=== PATIENT | female | born 1990 | race Asian ===

== ENCOUNTER 2017-11-05 01:02 | Emergency (ER) | payer SELFPAY ==
[~2017-11-05] VITALS: Ht 165.1 cm; Wt 58.1 kg
[~2017-11-05 01:02] MED LIST: CIPRO500 MG PO; IBUPROFEN600 MG ORAL
[2017-11-05 01:20] VITALS: BP 103/68
[2017-11-05] MEDS ORDERED: NKM (01:21)
[2017-11-05] MEDS ORDERED: Cephalexin 500mg cap ORAL ONE (01:30)
[2017-11-05] MEDS ORDERED: Phenazopyridine 200mg tab ORAL ONE (01:30)
[2017-11-05] MEDS ORDERED: CEPHALEXIN500 MG ORAL (01:32)
[2017-11-05] MEDS ORDERED: PHENAZOPYRIDIN200 MG ORAL (01:32)
--- NOTE | 2017-11-05 01:33 | Emergency Room Report ---
History of Present Illness General Chief Complaint: Female Urogenital Problems Source: Patient Present Illness HPI Is a 27-year-old German female with no past medical history. She presents with chief complaint of dysuria, frequency, urgency for the last 3 days. Worse tonight. She noticed some hematuria. No radiation. No fever. No upper back pain. Pain is 7 out of 10. Worse with urination. Allergies: Coded Allergies: No Known Allergies (Unverified , 11/05/17) Patient History Past Medical History: none, see triage record, old chart reviewed Past Surgical History: none Pertinent Family History: none Social History: Denies: smoking Last Menstrual Period: unk Now: No Immunizations: other Reviewed Nursing Documentation: PMH: Agreed; PSxH: Agreed Nursing Documentation-PMH Past Medical History: No Stated History Review of Systems Eye: Denies: eye pain, blurred vision ENT: Denies: ear pain, nose congestion, throat swelling Respiratory: Denies: cough, shortness of breath Cardiovascular: Denies: chest pain, palpitations Gastrointestinal: Denies: abdominal pain, diarrhea, nausea, vomiting Genitourinary: Reports: dysuria, frequency, hematuria, pain, urgency Musculoskeletal: Denies: back pain, joint pain Skin: Denies: rash Neurological: Denies: headache, numbness Endocrine: Denies: increased thirst, increased urine Hematologic/Lymphatic: Denies: easy bruising All Other Systems: negative except mentioned in HPI Physical Exam Vital Signs Date Time Temp Pulse Resp B/P (MAP) Pulse Ox O2 Delivery O2 Flow Rate FiO2 11/05/17 01:17 98.2 83 16 103/68 95 98.2 vitals normal Sp02 EP Interpretation: reviewed, normal General Appearance: well appearing, no apparent distress, alert Head: normocephalic, atraumatic Eyes: bilateral eye PERRL, bilateral eye EOMI ENT: hearing grossly normal, normal pharynx Neck: full range of motion, supple, no meningismus Respiratory: chest non-tender, lungs clear, normal breath sounds Cardiovascular #1: regular rate, rhythm, no murmur Gastrointestinal: normal bowel sounds, non tender, no mass, no organomegaly, no bruit, non-distended Musculoskeletal: back normal, gait/station normal, normal range of motion Psychiatric: mood/affect normal Skin: warm/dry Medical Decision Making Diagnostic Impression: Primary Impression: UTI (urinary tract infection) Qualified Codes: N30.01 - Acute cystitis with hematuria ER Course Patient presents with symptoms consistent with UTI. No evidence of pyelonephritis or sepsis. Dose of antibiotics and Pyridium given here. We'll discharge home. Last Vital Signs Date Time Temp Pulse Resp B/P (MAP) Pulse Ox O2 Delivery O2 Flow Rate FiO2 11/05/17 01:17 98.2 83 16 103/68 95 98.2 Status: improved Disposition: HOME, SELF-CARE Condition: Stable Scripts Phenazopyridine Hcl* (PYRIDIUM*) 200 Mg Tablet 200 MG ORAL THREE TIMES A DAY, #6 TAB 0 Refills Prov: MI REGALADO M.D. 11/05/17 Cephalexin* (KEFLEX*) 500 Mg Capsule 500 MG ORAL TID, #21 CAP Prov: MI REGALADO M.D. 11/05/17 Referrals: NOT CHOSEN IPA/,REFERRING (PCP) Patient Instructions: Urinary Tract Infection Additional Instructions: Increase fluid. Pyridium will turn your urine an orange color. Do not be concern. Follow-up with your DrOctaviano in 2-3 days of not better. Return if worse. MI REGALADO M.D. Nov 05, 2017 01:33
[2017-11-05 01:50] VITALS: BP_SYST 103; BP_SYST 108; BP_DIAS 68; BP_DIAS 72
== END 2017-11-05 01:51 | disposition home or self-care (01) ==
LOC: EMR 01:23 → MERGE 01:23 → EMR 01:51
DX: N39.0 Urinary tract infection, site not specified (principal)
CPT/HCPCS: 87086; 87181; 99283

== ENCOUNTER 2017-11-26 09:39 | Emergency (ER) | payer MEDICAID ==
[~2017-11-26] VITALS: Ht 167.6 cm; Wt 54.4 kg
[~2017-11-26 09:39] MED LIST changes: +CEPHALEXIN500 MG ORAL; +NKM; +PHENAZOPYRIDIN200 MG ORAL
[2017-11-26 09:47] VITALS: BP 102/60
--- NOTE | 2017-11-26 09:52 | Emergency Room Report ---
History of Present Illness General Chief Complaint: Behavioral Complaint Source: Patient, EMS (Anson Lal MD) Present Illness HPI Patient is a 27-year-old female brought in by EMS after increased reported suicidal thoughts. Patient was brought in with a [employer]. The patient was placed on a 5150 reported danger to self. Per [employer] patient was the reported telling multiple people that she wanted to harm herself. Per [employer] the patient stated that she had reported suicidal thoughts. patient reports having prior hospitalization. She denies any medication use other than Xanax. (Anson Lal MD) Allergies: Coded Allergies: No Known Allergies (Unverified , 05/17/12) Patient History Past Medical History: see triage record Past Surgical History: unable to obtain Last Menstrual Period: does not remember Reviewed Nursing Documentation: PMH: Agreed; PSxH: Agreed (Anson Lal MD) Nursing Documentation-PMH Past Medical History: No History, Except For History Of Psychiatric Problem: Yes - bipolar (Anson Lal MD) Review of Systems All Other Systems: limited - by poor cooperation (Anson Lal MD) Physical Exam Vital Signs Date Time Temp Pulse Resp B/P (MAP) Pulse Ox O2 Delivery O2 Flow Rate FiO2 11/26/17 09:31 98.9 89 16 100/68 99 Room Air 99.0 Sp02 EP Interpretation: reviewed, normal General Appearance: alert/responsive, no apparent distress, GCS 15, non-toxic Head: atraumatic Eyes: PERRL, lids + conjunctiva normal ENT: hearing intact, no angioedema Neck: supple/symm/no masses, no meningismus Respiratory: effort normal, no wheezing, chest symmetrical Cardiovascular: regular rate, rhythm, no edema Cardiovascular #2: 2+ carotid (R), 2+ carotid (L), 2+ dorsalis pedis (R), 2+ dorsalis pedis (L) Gastrointestinal: non-tender, no mass, non-distended, no rebound/guarding, normal bowel sounds Musculoskeletal: gait & station normal, strength & tone normal, normal ROM, non -tender Neurologic: oriented x3, sensory intact, normal speech Psychiatric: other - intermittent inappropriate laughter, normal speech Skin: no rash, well hydrated Lymphatic: normal inspection (Anson Lal MD) Medical Decision Making Diagnostic Impression: Primary Impression: Psychosis Qualified Codes: F29 - Unspecified psychosis not due to a substance or known physiological condition Additional Impression: Bipolar disorder Qualified Codes: F31.64 - Bipolar disorder, current episode mixed, severe, with psychotic features ER Course Patient presented for suicidal thoughts. Differential diagnoses include bipolar disorder, substance abuse, psychosis, depression among others.Because of complexity of patient's case laboratory testing and imaging studies were ordered.The laboratory studies are unremarkable. Patient was medically cleared for psychiatric placement. Labs Test 11/26/17 10:20 11/26/17 10:25 Urine Color Yellow Urine Appearance Clear Urine pH 6 (4.5-8.0) Urine Specific [place] 1.020 (1.005-1.035) Urine Protein 1+ (NEGATIVE) Urine Glucose (UA) Negative (NEGATIVE) Urine Ketones Negative (NEGATIVE) Urine Blood Negative (NEGATIVE) Urine Nitrite Negative (NEGATIVE) Urine Bilirubin Negative (NEGATIVE) Urine Urobilinogen Normal MG/DL (0.0-1.0) Urine Leukocyte Esterase 1+ (NEGATIVE) Urine RBC 0 /HPF (0 - 2) Urine WBC 0-2 /HPF (0 - 2) Urine Squamous Epithelial Cells Occasional /LPF Urine Bacteria Moderate /HPF (NONE) Urine HCG, Qualitative Negative (NEGATIVE) Urine Opiates Screen Negative (NEGATIVE) Urine Barbiturates Screen Negative (NEGATIVE) Phencyclidine (PCP) Screen Negative (NEGATIVE) Urine Amphetamines Screen Negative (NEGATIVE) Urine Benzodiazepines Screen Negative (NEGATIVE) Urine Cocaine Screen Negative (NEGATIVE) Urine Marijuana (THC) Screen Negative (NEGATIVE) White Blood Count 6.7 K/UL (4.8-10.8) Red Blood Count 4.14 M/UL (4.20-5.40) Hemoglobin 12.4 G/DL (12.0-16.0) Hematocrit 37.7 % (37.0-47.0) Mean Corpuscular Volume 91 FL (80-99) Mean Corpuscular Hemoglobin 29.9 PG (27.0-31.0) Mean Corpuscular Hemoglobin Concent 32.8 G/DL (32.0-36.0) Red Cell Distribution Width 11.9 % (11.6-14.8) Platelet Count 205 K/UL (150-450) Mean Platelet Volume 7.1 FL (6.5-10.1) Neutrophils (%) (Auto) 65.2 % (45.0-75.0) Lymphocytes (%) (Auto) 24.8 % (20.0-45.0) Monocytes (%) (Auto) 8.1 % (1.0-10.0) Eosinophils (%) (Auto) 0.8 % (0.0-3.0) Basophils (%) (Auto) 1.2 % (0.0-2.0) Sodium Level 143 MMOL/L (136-145) Potassium Level 3.6 MMOL/L (3.5-5.1) Chloride Level 108 MMOL/L (98-107) Carbon Dioxide Level 27 MMOL/L (21-32) Anion Gap 9 mmol/L (5-15) Blood Urea Nitrogen 11 mg/dL (7-18) Creatinine 0.7 MG/DL (0.55-1.30) Estimat Glomerular Filtration Rate > 60 mL/min (>60) Glucose Level 91 MG/DL (74-106) Calcium Level 8.6 MG/DL (8.5-10.1) Total Bilirubin 0.3 MG/DL (0.2-1.0) Aspartate Amino Transf (AST/SGOT) 15 U/L (15-37) Alanine Aminotransferase (ALT/SGPT) 19 U/L (12-78) Alkaline Phosphatase 46 U/L (46-116) Total Protein 6.5 G/DL (6.4-8.2) Albumin 3.4 G/DL (3.4-5.0) Globulin 3.1 g/dL Albumin/Globulin Ratio 1.1 (1.0-2.7) Salicylates Level 0.6 ug/mL (2.8-20) Acetaminophen Level < 2 MCG/ML (10-30) Serum Alcohol < 3 mg/dL (Anson Lal MD) ER Course Please see above note by Dr. Lal. Father and stepmother came. I discussed the patient's condition with them. They state that she has a history of bipolar disorder and previously was on lithium and Depakote refuses to take her medications.. She also has been on Klonopin in the past. Patient is still refusing to take medications at this time and is compliant but still somewhat delusional. Awaiting transfer to a psychiatric facility. Patient requested sleep aid. Ativan ordered. Patient signed out to Dr. Vitale. (Star Forrest M.D.) Last Vital Signs Date Time Temp Pulse Resp B/P (MAP) Pulse Ox O2 Delivery O2 Flow Rate FiO2 11/26/17 09:31 98.9 89 16 100/68 99 Room Air 99.0 Status: unchanged (Anson Lal MD) Disposition: XFER TO PSYCH HOSP/UNIT Condition: Stable Anson Lal MD Nov 26, 2017 09:52 Star Forrest M.D. Nov 26, 2017 18:27
[2017-11-26 10:34] LABS: APPEARANCE,URINE CLEAR; BILIRUBIN, URINE NEGATIVE (NEGATIVE); GLUCOSE, URINE (UA) NEGATIVE (NEGATIVE); KETONES,URINE NEGATIVE (NEGATIVE); LEUKOCYTE ESTERASE ,URINE 1+ (NEGATIVE); NITRITE,URINE NEGATIVE (NEGATIVE); PH,URINE 6 (4.5-8.0); PROTEIN,URINE 1+ (NEGATIVE); UROBILINOGEN,URINE NORMAL MG/DL (0.0-1.0)
[2017-11-26 10:35] LABS: COLOR,URINE YELLOW
[2017-11-26 10:54] LABS: ANION GAP 9 mmol/L (5-15); BLOOD UREA NITROGEN 11 mg/dL (7-18); CALCIUM 8.6 MG/DL (8.5-10.1); CARBON DIOXIDE 27 MMOL/L (21-32); CHLORIDE 108 MMOL/L (98-107); CREATININE 0.7 MG/DL (0.55-1.30); POTASSIUM 3.6 MMOL/L (3.5-5.1); SODIUM 143 MMOL/L (136-145)
[2017-11-26 10:57] LABS: ALANINE AMINOTRANSFERASE 19 U/L (12-78); ALBUMIN 3.4 G/DL (3.4-5.0); ALBUMIN/GLOBULIN RATIO 1.1 (1.0-2.7); ALKALINE PHOSPHATASE 46 U/L (46-116); ASPARTATE AMINO TRANSFERASE 15 U/L (15-37); BASOPHILS % (AUTO) 1.2 % (0.0-2.0); BILIRUBIN,TOTAL 0.3 MG/DL (0.2-1.0); EOSINOPHILS % (AUTO) 0.8 % (0.0-3.0); HEMATOCRIT 37.7 % (37.0-47.0); HEMOGLOBIN 12.4 G/DL (12.0-16.0); LYMPHOCYTES % (AUTO) 24.8 % (20.0-45.0); MEAN CORPUSCULAR VOLUME 91 FL (80-99); MONOCYTES % (AUTO) 8.1 % (1.0-10.0); NEUTROPHILS % (AUTO) 65.2 % (45.0-75.0); PLATELET COUNT 205 K/UL (150-450); RED BLOOD COUNT 4.14 M/UL (4.20-5.40); RED CELL DISTRIBUTION WIDTH 11.9 % (11.6-14.8); WHITE BLOOD COUNT 6.7 K/UL (4.8-10.8)
[2017-11-26 13:55] VITALS: BP 107/66
[2017-11-26 18:17] VITALS: BP 108/65
[2017-11-26] MEDS ORDERED: LORazepam 1mg tab ORAL ONE (22:45)
[2017-11-26] MEDS: Cephalexin 500mg cap ORAL SCH (23:55)
[2017-11-27 07:49] VITALS: BP 91/57
[2017-11-27] MEDS ORDERED: Bacitracin Oint UD TOPIC ONE (08:00)
[2017-11-27] MEDS: Cephalexin 500mg cap ORAL SCH ×2 (09:27→09:35)
[2017-11-27] MEDS ORDERED: LORazepam 1mg tab ORAL ONE (12:15)
[2017-11-27 16:19] VITALS: BP 100/64
[2017-11-27 16:37] VITALS: BP 100/64
--- NOTE | 2017-11-27 23:55 | Consultation ---
History of Present Illness General Date patient seen: Nov 27, 2017 Chief Complaint: Behavioral Complaint Present Illness HPI 27-year-old female brought in by EMS after increased reported suicidal thoughts. Patient was brought in with a [employer]. The patient was placed on a 5150 reported danger to self. Per [employer] patient was the reported telling multiple people that she wanted to harm herself and father . the pt stated that she would kill dad first and then self. the pt has self mutilating behavior and was very immature. the pt denies si and has issues with dad and step mother. Allergies: Coded Allergies: No Known Allergies (Unverified , 05/17/12) Medication History Scheduled Cephalexin* (Keflex*), 500 MG ORAL TID Ciprofloxacin* (Cipro*), 500 MG PO BID Ibuprofen* (Motrin*), 600 MG ORAL THREE TIMES A DAY No Known Medications* (NKM - No Known Medications*), 0 ., (Reported) Phenazopyridine Hcl* (Pyridium*), 200 MG ORAL THREE TIMES A DAY Patient History Limited by: medical condition History Provided By: Patient, Medical Record, [employer] Healthcare decision maker Resuscitation status Advanced Directive on File Review of Systems Psychiatric: Reports: anxiety, depressed feelings, emotional problems Physical Exam General Appearance: no apparent distress, alert Last 24 Hour Vital Signs Date Time Temp Pulse Resp B/P (MAP) Pulse Ox O2 Delivery O2 Flow Rate FiO2 11/27/17 16:37 98.6 58 16 100/64 98 Room Air 98.6 11/27/17 16:19 98.6 53 16 100/64 98 Room Air 98.6 11/27/17 07:49 98.7 62 16 91/57 98 98.7 Intake and Output 11/26/17 11/27/17 19:00 07:00 Intake Total 500 ml Balance 500 ml Intake IV Total 500 ml # Voids 1 Height (Feet): 5 Height (Inches): 6.00 Weight (Pounds): 120 Assessment/Plan Assessment/Plan bipolar bpd the pt will be transferred to [facility] on [address] Deshaun Mccabe MD Nov 27, 2017 23:55
== END 2017-11-27 16:37 ==
LOC: EDBD 09:39 → EMR 09:55
DX: F29 Unspecified psychosis not due to a substance or known physiological condition (principal); F31.9 Bipolar disorder, unspecified
CPT/HCPCS: 36415; 80053; 80307; 80329; 81003; 81025; 85025; 87086; 99285